=== PATIENT | male | born 1995 | race Caucasian/White ===

== ENCOUNTER 2017-03-30 15:56 | Emergency (ER) | payer OTHER, BC ==
[~2017-03-30] VITALS: Ht 180.3 cm; Wt 141.4 kg
[2017-03-30] MEDS ORDERED: NS 1,000 ML IV ONE (19:00)
[2017-03-30] MEDS ORDERED: MORPHINE 4 MG/ML 1ML SYRINGE IV PRN (19:00)
[2017-03-30] MEDS ORDERED: GASTROGRAFIN SOLUTION 30ML (Q9963) PO ONE (19:00)
[2017-03-30] MEDS ORDERED: ONDANSETRON 4MG/2ML VIAL (J2405) IV ONE (19:00)
[2017-03-30 19:23] LABS: BASO % 0.3 % (0.0-1.0); EOS % 0.3 % (0.0-3.0); IMMATURE GRANULOCYTE % 0.6 % (0-0); LYMPH # 0.8 10^3/uL (1.5-6.5); LYMPH % 6.2 % (24.0-44.0); MEAN CORPUSCULAR HEMOGLOBIN 31.1 pg (27.0-33.0); MEAN CORPUSCULAR HGB CONC 34.4 g/dl (32.0-36.5); MEAN CORPUSCULAR VOLUME 90.3 fl (80.0-96.0); MONO # 0.5 10^3/uL (0.0-0.8); MONO % 4.1 % (0.0-5.0); NEUTROPHILS % 88.5 % (36.0-66.0); PLATELET COUNT, AUTOMATED 211 10^3/uL (150-450); RED CELL DISTRIBUTION WIDTH 11.7 % (11.5-14.5); WHITE BLOOD COUNT 12.5 10^3/uL (4.0-10.0)
[2017-03-30 19:47] LABS: ALBUMIN 4.3 GM/DL (3.2-5.2); ALKALINE PHOSPHATASE 76 U/L (45-117); ALT/SGPT 55 U/L (12-78); ANION GAP 6 MEQ/L (8-16); AST/SGOT 29 U/L (15-37); BILIRUBIN,DIRECT 0.2 MG/DL (0.0-0.2); BILIRUBIN,TOTAL 0.9 MG/DL (0.2-1.0); BLOOD UREA NITROGEN 12 MG/DL (7-18); CALCIUM LEVEL 8.9 MG/DL (8.5-10.1); CARBON DIOXIDE LEVEL 28 MEQ/L (21-32); CHLORIDE LEVEL 102 MEQ/L (98-107); CREATININE FOR GFR 0.93 MG/DL (0.70-1.30); GLOMERULAR FILTRATION RATE > 60.0 (>60); GLUCOSE, FASTING 94 MG/DL (70-105); POTASSIUM SERUM 3.5 MEQ/L (3.5-5.1); SODIUM LEVEL 136 MEQ/L (136-145); TOTAL PROTEIN 8.2 GM/DL (6.4-8.2)
[2017-03-30] MEDS ORDERED: ISOVUE-370 76% 100ML VIAL (Q9967) As Ordered ONE (20:25)
[2017-03-30] MEDS ORDERED: PERC5TAB12 PO (22:29)
[2017-03-30] MEDS ORDERED: BENT10CA PO (22:29)
[2017-03-30] MEDS ORDERED: ZOFR4TAB3 PO (22:29)
[2017-03-30] MEDS ORDERED: DICYCLOMINE 10 MG CAP PO ONE (22:30)
[2017-03-30] MEDS ORDERED: OXYCODONE/APAP 5MG/325MG(BULK FOR ED) 1 TABLET PO ONE (22:30)
[2017-03-30] MEDS ORDERED: ONDANSETRON 4 MG ORAL DISINTEGRATING TAB (S0181) PO ONE (22:30)
[2017-03-30 22:40] VITALS: BP 128/83
--- NOTE | 2017-03-31 15:17 | REP ---
Clinical: Lower abdominal pain with fever and diarrhea. Technique: Axial contrast enhanced images from the lung bases to the pubic symphysis using oral and 100 ml Isovue 370 intravenous contrast material with coronal and sagittal re-formations. Comparison: 05/31/2014. Findings: Lung bases are clear. Visualized heart and pericardium normal. Small hiatal hernia identified at the gastroesophageal junction. Liver, spleen, pancreas, gallbladder, bilateral adrenal glands and kidneys are normal. The enteric system is without obstruction or acute inflammatory process. Mildly prominent mesenteric and right lower quadrant lymph nodes may reflect mesenteric adenitis and should be correlated clinically. There is no evidence for appendicitis. Few scattered sigmoid diverticula noted without acute diverticulitis. Pelvis demonstrates partially collapsed normal bladder and age appropriate prostate/seminal vesicles. No free air. No free fluid. No retroperitoneal adenopathy. Abdominal aorta and vasculature normal. Surrounding musculoskeletal structures are intact. Impression: 1. Few scattered and minimally prominent mesenteric/right lower quadrant lymph nodes may reflect mesenteric adenitis. 2. No further acute abdominopelvic pathology appreciated. Signed by Yrn De La Garza MD 03/31/2017 03:09 P
== END 2017-03-30 22:48 | disposition home or self-care (01) ==
LOC: M ED 15:56
DX: R10.31 Right lower quadrant pain (principal); K21.9 Gastro-esophageal reflux disease without esophagitis
CPT/HCPCS: 74177; 80048; 80076; 81001; 83690; 85025; 99284; J2405; Q9963; Q9967

== ENCOUNTER 2017-10-21 19:40 | Emergency (ER) | payer OTHER, BC ==
[2017-10-21] MEDS: oxyCODONE 5MG TAB PO (22:16)
[2017-10-21] MEDS: AUGMENTIN 875 MG TAB PO (22:16)
== END 2017-10-21 22:20 | disposition home or self-care (01) ==
LOC: M ED 19:40
DX: K04.7 Periapical abscess without sinus (principal); K21.9 Gastro-esophageal reflux disease without esophagitis; Z79.899 Other long term (current) drug therapy
CPT/HCPCS: 99283

== ENCOUNTER 2017-12-17 19:14 | Emergency (ER) | payer OTHER ==
[2017-12-17] MEDS: LIDOCAINE 2% MDV 20 ML VIAL SC (21:45)
[2017-12-17] MEDS: BACTRIM 160MG/800MG DS TAB PO (22:00)
== END 2017-12-17 22:06 | disposition home or self-care (01) ==
LOC: M ED 19:14
DX: A49.02 Methicillin resistant Staphylococcus aureus infection, unspecified site (principal); L02.811 Cutaneous abscess of head [any part, except face]; K21.9 Gastro-esophageal reflux disease without esophagitis; Z86.14 Personal history of Methicillin resistant Staphylococcus aureus infection; Z87.891 Personal history of nicotine dependence
CPT/HCPCS: 99283

== ENCOUNTER 2018-02-23 00:22 | Emergency (ER) | payer OTHER ==
[2018-02-23] MEDS: FAMOTIDINE 20 MG TAB PO (01:15)
[2018-02-23] MEDS: predniSONE 20 MG TAB PO (01:15)
[2018-02-23] MEDS: diphenhydrAMINE 50 MG CAP PO (01:15)
== END 2018-02-23 02:07 | disposition home or self-care (01) ==
LOC: M ED 00:22
DX: L50.0 Allergic urticaria (principal); R51 Headache; Z79.899 Other long term (current) drug therapy
CPT/HCPCS: 99282

== ENCOUNTER 2018-03-11 02:24 | Emergency (ER) | payer OTHER ==
[2018-03-11] MEDS: METHOCARBAMOL 1,000 MG/10 ML VIAL (J2800) IV (04:15)
[2018-03-11] MEDS: ONDANSETRON 4MG/2ML VIAL (J2405) IV (04:15)
[2018-03-11] MEDS: KETOROLAC 30 MG/ML VIAL (J1885) IV (04:16)
[2018-03-11] MEDS: MORPHINE 4 MG/ML 1ML VIAL/SYRINGE (J2270) IV (04:17)
[2018-03-11] MEDS: OXYCODONE/APAP 5MG/325MG(BULK FOR ED) 1 TABLET PO (06:02)
== END 2018-03-11 06:06 | disposition home or self-care (01) ==
LOC: M ED 02:24
DX: M54.5 Low back pain (principal); E66.01 Morbid (severe) obesity due to excess calories
CPT/HCPCS: J2270

== ENCOUNTER 2018-06-03 22:33 | Emergency (ER) | payer OTHER ==
[~2018-06-03] VITALS: Ht 185.4 cm; Wt 136.4 kg
[~2018-06-03 22:33] MED LIST: AUGM875T28 PO; BACT800T5 PO; BENA2CRE2 TOP; BENT10CA PO; IBUP-1022 PO; LEVO50TA5; NAPR-49 PO; OMEP40CA2 PO; PERC5TAB12 PO; PRED20TA PO; ROBA500T PO; ZOFR4TAB14 PO
[2018-06-03] MEDS ORDERED: BENA25CA4 PO (23:11)
[2018-06-03] MEDS ORDERED: PRED20TA PO (23:11)
[2018-06-03] MEDS ORDERED: predniSONE 20 MG TAB PO ONE (23:15)
[2018-06-03] MEDS ORDERED: diphenhydrAMINE 50 MG CAP PO ONE (23:15)
[2018-06-03 23:43] VITALS: BP 129/75
== END 2018-06-03 23:58 | disposition home or self-care (01) ==
LOC: M ED 22:33
DX: R21 Rash and other nonspecific skin eruption (principal); T78.40XA Allergy, unspecified, initial encounter; X58.XXXA Exposure to other specified factors, initial encounter; Y92.89 Other specified places as the place of occurrence of the external cause; K21.9 Gastro-esophageal reflux disease without esophagitis; E03.9 Hypothyroidism, unspecified; Z79.899 Other long term (current) drug therapy

== ENCOUNTER 2019-01-19 21:43 | Emergency (ER) | payer OTHER ==
[~2019-01-19] VITALS: Ht 182.9 cm; Wt 136.4 kg
[~2019-01-19 21:43] MED LIST changes: +BENA25CA4 PO; -NAPR-49 PO; +NAPR-837 PO
[2019-01-19 22:21] LABS: HEMATOCRIT 51.1 % (42.0-52.0); HEMOGLOBIN 17.4 g/dl (13.5-17.5); MEAN CORPUSCULAR HEMOGLOBIN 31.2 pg (27.0-33.0); MEAN CORPUSCULAR HGB CONC 34.1 g/dl (32.0-36.5); MEAN CORPUSCULAR VOLUME 91.7 fl (80.0-96.0); PLATELET COUNT, AUTOMATED 218 10^3/uL (150-450); RED BLOOD COUNT 5.57 10^6/uL (4.30-6.10); WHITE BLOOD COUNT 11.8 10^3/uL (4.0-10.0)
[2019-01-19 22:50] LABS: ALBUMIN 4.1 GM/DL (3.2-5.2); ALT/SGPT 65 U/L (12-78); BILIRUBIN,TOTAL 0.3 MG/DL (0.2-1.0); BLOOD UREA NITROGEN 13 MG/DL (7-18); CALCIUM LEVEL 9.6 MG/DL (8.5-10.1); CARBON DIOXIDE LEVEL 29 MEQ/L (21-32); CHLORIDE LEVEL 105 MEQ/L (98-107); CREATININE FOR GFR 0.91 MG/DL (0.70-1.30); GLOMERULAR FILTRATION RATE > 60.0 (>60); GLUCOSE, FASTING 108 MG/DL (70-100); POTASSIUM SERUM 4.3 MEQ/L (3.5-5.1); SODIUM LEVEL 140 MEQ/L (136-145); TOTAL PROTEIN 7.8 GM/DL (6.4-8.2)
[2019-01-20 00:02] LABS: APPEARANCE, URINE HAZY (CLEAR); BACTERIA, URINE AUTO NEGATIVE (NEGATIVE); BILIRUBIN, URINE AUTO NEGATIVE (NEGATIVE); BLOOD, URINE BLOOD NEGATIVE (NEGATIVE); COLOR, URINE YELLOW (YELLOW); GLUCOSE, URINE (UA) AUTO NEGATIVE (NEGATIVE); KETONE, URINE AUTO TRACE mg/dL (NEGATIVE); LEUKOCYTE ESTERASE, URINE AUTO TRACE (NEGATIVE); MUCUS, URINE SMALL (NEGATIVE); NITRITE, URINE AUTO NEGATIVE (NEGATIVE); PROTEIN, URINE AUTO NEGATIVE (NEGATIVE); RBC, URINE AUTO 4 /HPF (0-3); SPECIFIC GRAVITY URINE AUTO 1.033 (1.002-1.035); SQUAMOUS EPITHELIAL CELL UR AU 0 /HPF (0-6); UROBILINOGEN, URINE AUTO 0.2 mg/dL (0.0-2.0); WBC, URINE AUTO 21 /HPF (0-3)
[2019-01-20] MEDS ORDERED: diphenhydrAMINE INJ 50MG/ML VIAL (J1200) IV STA (01:12)
[2019-01-20] MEDS ORDERED: NS 1,000 ML IV ONE (01:15)
[2019-01-20] MEDS ORDERED: MORPHINE 4 MG/ML 1ML VIAL/SYRINGE (J2270) IV ONE (01:15)
[2019-01-20] MEDS ORDERED: ISOVUE-370 76% 100ML VIAL (Q9967) As Ordered ONE (01:34)
[2019-01-20 03:38] VITALS: BP 115/58
--- NOTE | 2019-01-20 04:35 | REPVR ---
EXAM: CT Abdomen and Pelvis With Contrast EXAM DATE/TIME: 01/20/2019 2:06 AM CLINICAL HISTORY: 23 years old, male; Abdominal pain; Localized; Right lower quadrant (rlq); Additional info: Rlq pain TECHNIQUE: Imaging protocol: Axial computed tomography images of the abdomen and pelvis with intravenous contrast. Coronal and sagittal reformatted images were created and reviewed. Radiation optimization: All CT scans at this facility use at least one of these dose optimization techniques: automated exposure control; mA and/or kV adjustment per patient size (includes targeted exams where dose is matched to clinical indication); or iterative reconstruction. Contrast material: ISOVUE 370;Contrast volume: 100 ml;Contrast route: IV; COMPARISON: CT ABD/PEL W/IV ORAL CONTRAS 03/30/2017 9:02 PM FINDINGS: Lungs: The visualized portions of the lung bases are normal. Liver: There are no focal liver lesions present. Gallbladder and bile ducts: The gallbladder is normal with no stones or biliary ductal dilation. Pancreas: There is diffuse, benign fatty infiltration of the pancreas. Spleen: The spleen is normal. Adrenals: The adrenal glands are normal. Kidneys and ureters: There is an 11 mm cyst in the left kidney lower pole, increased in size from 9 mm on the prior exam. No followup needed. The kidneys are otherwise unremarkable. There are no ureteral stones or hydronephrosis. Stomach and bowel: There is no dilation or thickening of the colon. The small bowel appears unremarkable. Appendix: A normal appendix is identified. Intraperitoneal space: There is no evidence of free intraperitoneal or pelvic fluid. There is no free intraperitoneal air. Vasculature: No aortic aneurysm. Lymph nodes: There are multiple small retroperitoneal, mesenteric, and inguinal lymph nodes, but they are not pathologically enlarged by CT criteria and are similar to the prior exam. Bladder: The bladder is unremarkable. No stones identified. Reproductive: The prostate gland and seminal vesicles are normal. Bones/joints: No suspicious osseous lesions. No acute fractures or dislocations. Soft tissues: Unremarkable. IMPRESSION: No acute abnormality identified. Normal appearance of the appendix. Electronically signed by: Sweta Colon On 01/20/2019 04:34:33 AM
[2019-01-20] MEDS ORDERED: BACT800T5 PO (04:47)
[2019-01-21] MEDS ORDERED: ONDA4TAB6 PO (19:36)
[2019-01-21] MEDS ORDERED: NAPR-837 PO (19:36)
[2019-01-21] MEDS ORDERED: MACR100C43 PO (19:36)
== END 2019-01-20 05:00 | disposition home or self-care (01) ==
LOC: M ED 21:43
DX: N30.90 Cystitis, unspecified without hematuria (principal); K21.9 Gastro-esophageal reflux disease without esophagitis; Z79.52 Long term (current) use of systemic steroids; Z79.891 Long term (current) use of opiate analgesic; Z79.899 Other long term (current) drug therapy
CPT/HCPCS: 74177; 80053; 81001; 85027; 96374; 96375; 99284; J1200; J2270; Q9967

== ENCOUNTER 2019-01-21 14:44 | Emergency (ER) | payer OTHER ==
[~2019-01-21] VITALS: Ht 182.9 cm; Wt 146.5 kg
[2019-01-21 15:20] LABS: APPEARANCE, URINE CLEAR (CLEAR); BACTERIA, URINE AUTO NEGATIVE (NEGATIVE); BILIRUBIN, URINE AUTO NEGATIVE (NEGATIVE); BLOOD, URINE BLOOD NEGATIVE (NEGATIVE); COLOR, URINE AMBER (YELLOW); GLUCOSE, URINE (UA) AUTO NEGATIVE (NEGATIVE); KETONE, URINE AUTO NEGATIVE (NEGATIVE); LEUKOCYTE ESTERASE, URINE AUTO NEGATIVE (NEGATIVE); NITRITE, URINE AUTO POSITIVE (NEGATIVE); PROTEIN, URINE AUTO NEGATIVE (NEGATIVE); RBC, URINE AUTO 1 /HPF (0-3); SPECIFIC GRAVITY URINE AUTO 1.004 (1.002-1.035); SQUAMOUS EPITHELIAL CELL UR AU 0 /HPF (0-6); WBC, URINE AUTO 2 /HPF (0-3)
[2019-01-21] MEDS ORDERED: NS 1,000 ML IV ONE (17:15)
[2019-01-21] MEDS ORDERED: ACETAMINOPHEN 500 MG TAB PO ONE (17:15)
[2019-01-21] MEDS ORDERED: KETOROLAC 30 MG/ML VIAL (J1885) IV ONE (17:15)
[2019-01-21 18:11] LABS: BASO # 0.1 10^3/uL (0.0-0.2); BASO % 0.7 % (0.0-1.0); EOS # 0.2 10^3/uL (0.0-0.50); EOS % 2.1 % (0.0-3.0); HEMATOCRIT 51.4 % (42.0-52.0); HEMOGLOBIN 17.3 g/dl (13.5-17.5); LYMPH # 1.9 10^3/uL (1.5-6.5); LYMPH % 18.7 % (24.0-44.0); MEAN CORPUSCULAR HEMOGLOBIN 31.1 pg (27.0-33.0); MEAN CORPUSCULAR HGB CONC 33.7 g/dl (32.0-36.5); MEAN CORPUSCULAR VOLUME 92.4 fl (80.0-96.0); MONO # 0.8 10^3/uL (0.0-0.8); NEUTROPHILS # 7.1 10^3/uL (1.8-7.7); NEUTROPHILS % 69.9 % (36.0-66.0); PLATELET COUNT, AUTOMATED 221 10^3/uL (150-450); RED BLOOD COUNT 5.56 10^6/uL (4.30-6.10); WHITE BLOOD COUNT 10.2 10^3/uL (4.0-10.0)
--- NOTE | 2019-01-21 18:16 | REPVR ---
EXAM: US Abdomen Limited, Right Upper Quadrant EXAM DATE/TIME: 01/21/2019 5:52 PM CLINICAL HISTORY: 23 years old, male; Abdominal pain; Flank; Right; Additional info: Right flank pain, fever, elevated lft's, kidney/liver please TECHNIQUE: Imaging protocol: Real-time ultrasound of the abdomen with image documentation. Examination was focused on the right upper quadrant. COMPARISON: CT ABD/PEL W/IV CONTRAST ONLY 01/20/2019 2:05 AM FINDINGS: Liver: Hepatomegaly. Liver appears diffusely echogenic, suggestive of hepatic steatosis. Gallbladder: No gallstones. No gallbladder wall thickening. No abnormal gallbladder distention. Common bile duct: Normal. No stones. No dilation. Pancreas: Pancreas was obscured by overlying bowel gas. Right kidney: Normal. No mass. No hydronephrosis. IMPRESSION: Diffuse hepatic steatosis and hepatomegaly. Electronically signed by: Oliva Odom On 01/21/2019 18:15:46 PM
[2019-01-21 18:42] LABS: ERYTHROCYTE SEDIMENTATION RATE 1 mm/hr (0-15)
[2019-01-21 18:53] LABS: ALBUMIN 4.3 GM/DL (3.2-5.2); ALT/SGPT 57 U/L (12-78); BILIRUBIN,DIRECT 0.2 MG/DL (0.0-0.2); BILIRUBIN,TOTAL 0.6 MG/DL (0.2-1.0); BLOOD UREA NITROGEN 7 MG/DL (7-18); C REACTIVE PROTEIN QUANTITATIV 1.13 MG/DL (0.00-0.30); CALCIUM LEVEL 9.6 MG/DL (8.5-10.1); CARBON DIOXIDE LEVEL 31 MEQ/L (21-32); CHLORIDE LEVEL 103 MEQ/L (98-107); CREATININE FOR GFR 1.02 MG/DL (0.70-1.30); GLOMERULAR FILTRATION RATE > 60.0 (>60); GLUCOSE, FASTING 89 MG/DL (70-100); POTASSIUM SERUM 4.2 MEQ/L (3.5-5.1); SODIUM LEVEL 139 MEQ/L (136-145)
[2019-01-21 19:36] VITALS: BP 139/91
[2019-01-21] MEDS ORDERED: MACR100C43 PO (19:36)
[2019-01-21] MEDS ORDERED: NAPR-837 PO (19:36)
[2019-01-21] MEDS ORDERED: ONDA4TAB6 PO (19:36)
[2019-01-23 11:18] LABS: HEPATITIS B SURFACE ANTIGEN NEGATIVE (NEGATIVE)
[2019-01-23 11:46] LABS: HEPATITIS B CORE ANTIBODY IGM NEGATIVE (NEGATIVE); HEPATITIS C VIRUS ABY INDEX 0.1 INDEX (<0.8)
[2019-01-23 11:48] LABS: HEPATITIS A ANTIBODY IGM NEGATIVE (NEGATIVE)
--- NOTE | 2019-01-25 20:20 | ED PDOC ---
Post-Departure Follow-Up dr parra faxed formal report of abdthomas hayes for fu Ann Marie Estes MD Jan 25, 2019 20:20
== END 2019-01-21 20:08 | disposition home or self-care (01) ==
LOC: M ED 14:44
DX: R50.9 Fever, unspecified (principal); N39.0 Urinary tract infection, site not specified; R10.9 Unspecified abdominal pain; E03.9 Hypothyroidism, unspecified; K21.9 Gastro-esophageal reflux disease without esophagitis; E66.01 Morbid (severe) obesity due to excess calories; K76.0 Fatty (change of) liver, not elsewhere classified; R16.0 Hepatomegaly, not elsewhere classified; Z79.899 Other long term (current) drug therapy
CPT/HCPCS: 76705; 80048; 80076; 81001; 85025; 85652; 86140; 86705; 86709; 86803; 87340; 96374; 99284; J1885

== ENCOUNTER → 2019-02-06 | Outpatient (REF) | payer OTHER ==
[~2019-02-06] MED LIST changes: +BUPR150T3 PO; +DOXY100C; +MACR100C43 PO; -OMEP40CA2 PO; +OMEP40CA97 PO; +ONDA4TAB6 PO; +PHEN15CA PO
[2019-02-06 13:28] LABS: APPEARANCE, URINE CLEAR (CLEAR); BACTERIA, URINE AUTO NEGATIVE (NEGATIVE); BILIRUBIN, URINE AUTO NEGATIVE (NEGATIVE); BLOOD, URINE BLOOD NEGATIVE (NEGATIVE); COLOR, URINE YELLOW (YELLOW); GLUCOSE, URINE (UA) AUTO NEGATIVE (NEGATIVE); KETONE, URINE AUTO NEGATIVE (NEGATIVE); LEUKOCYTE ESTERASE, URINE AUTO 2+ (NEGATIVE); MUCUS, URINE SMALL (NEGATIVE); NITRITE, URINE AUTO NEGATIVE (NEGATIVE); PROTEIN, URINE AUTO NEGATIVE (NEGATIVE); RBC, URINE AUTO 7 /HPF (0-3); SPECIFIC GRAVITY URINE AUTO 1.012 (1.002-1.035); SQUAMOUS EPITHELIAL CELL UR AU 0 /HPF (0-6); UROBILINOGEN, URINE AUTO 0.2 mg/dL (0.0-2.0); WBC, URINE AUTO 41 /HPF (0-3)
== END ==
LOC: M LAB REF 12:36
PROVIDERS: ATTEND Nurse Practitioner Family
DX: N39.0 Urinary tract infection, site not specified (principal)

== ENCOUNTER → 2019-02-17 | Outpatient (REF) | payer OTHER ==
[~2019-02-17] MED LIST changes: -BUPR150T3 PO; -DOXY100C; +OMEP40CA2 PO; -OMEP40CA97 PO; -PHEN15CA PO
[2019-02-17 13:56] LABS: APPEARANCE, URINE CLEAR (CLEAR); BACTERIA, URINE AUTO NEGATIVE (NEGATIVE); BILIRUBIN, URINE AUTO NEGATIVE (NEGATIVE); BLOOD, URINE BLOOD NEGATIVE (NEGATIVE); COLOR, URINE YELLOW (YELLOW); GLUCOSE, URINE (UA) AUTO NEGATIVE (NEGATIVE); KETONE, URINE AUTO NEGATIVE (NEGATIVE); LEUKOCYTE ESTERASE, URINE AUTO 2+ (NEGATIVE); MUCUS, URINE SMALL (NEGATIVE); NITRITE, URINE AUTO NEGATIVE (NEGATIVE); PROTEIN, URINE AUTO NEGATIVE (NEGATIVE); RBC, URINE AUTO 1 /HPF (0-3); SPECIFIC GRAVITY URINE AUTO 1.009 (1.002-1.035); SQUAMOUS EPITHELIAL CELL UR AU 0 /HPF (0-6); UROBILINOGEN, URINE AUTO 0.2 mg/dL (0.0-2.0); WBC, URINE AUTO 35 /HPF (0-3)
== END ==
LOC: M SMT 13:13
PROVIDERS: ATTEND Urology
DX: N39.0 Urinary tract infection, site not specified (principal)

== ENCOUNTER → 2019-04-02 | Outpatient (REF) | payer OTHER ==
[~2019-04-02] MED LIST changes: -OMEP40CA2 PO; +OMEP40CA97 PO
[2019-04-02 13:11] LABS: APPEARANCE, URINE CLEAR (CLEAR); BACTERIA, URINE AUTO 1+ (NEGATIVE); BILIRUBIN, URINE AUTO NEGATIVE (NEGATIVE); BLOOD, URINE BLOOD NEGATIVE (NEGATIVE); COLOR, URINE YELLOW (YELLOW); GLUCOSE, URINE (UA) AUTO NEGATIVE (NEGATIVE); KETONE, URINE AUTO NEGATIVE (NEGATIVE); LEUKOCYTE ESTERASE, URINE AUTO 1+ (NEGATIVE); MUCUS, URINE SMALL (NEGATIVE); NITRITE, URINE AUTO NEGATIVE (NEGATIVE); PROTEIN, URINE AUTO NEGATIVE (NEGATIVE); RBC, URINE AUTO 1 /HPF (0-3); SPECIFIC GRAVITY URINE AUTO 1.014 (1.002-1.035); SQUAMOUS EPITHELIAL CELL UR AU 0 /HPF (0-6); UROBILINOGEN, URINE AUTO 0.2 mg/dL (0.0-2.0); WBC, URINE AUTO 45 /HPF (0-3)
== END ==
LOC: M SMT 12:51
PROVIDERS: ATTEND Urology
DX: R73.01 Impaired fasting glucose (principal)

== ENCOUNTER 2019-05-09 01:43 | Emergency (ER) | payer OTHER ==
[~2019-05-09] VITALS: Ht 182.9 cm; Wt 131.4 kg
[2019-05-09 01:44] VITALS: BP 140/94
[2019-05-09] MEDS ORDERED: DOXY100C (01:57)
[2019-05-09] MEDS ORDERED: BUPR150T3 PO (01:57)
[2019-05-09] MEDS ORDERED: PHEN15CA PO (01:57)
== END 2019-05-09 05:23 | disposition left against medical advice (07) ==
LOC: M ED 01:43
DX: Z53.21 Procedure and treatment not carried out due to patient leaving prior to being seen by health care provider (principal)

== ENCOUNTER 2019-06-03 21:05 | Emergency (ER) | payer OTHER ==
[~2019-06-03] VITALS: Ht 185.4 cm; Wt 129.6 kg
[~2019-06-03 21:05] MED LIST changes: +BUPR150T3 PO; +DOXY100C; +PHEN15CA PO
[2019-06-03 21:06] VITALS: BP 136/93
== END 2019-06-03 23:55 | disposition left against medical advice (07) ==
LOC: M ED 21:05
DX: Z53.21 Procedure and treatment not carried out due to patient leaving prior to being seen by health care provider (principal)

== ENCOUNTER → 2020-01-14 | Outpatient (REF) | payer OTHER ==
[~2020-01-14] MED LIST changes: +POLYSOL OP
[2020-03-08 12:55] LABS: CHLAMYDIA DNA AMPLIFICATION POSITIVE (NEGATIVE); GC DNA AMPLIFICATION NEGATIVE (NEGATIVE)
== END ==
LOC: M LABWUC 15:46
PROVIDERS: ATTEND Physician Assistant
DX: R30.0 Dysuria (principal)

== ENCOUNTER 2020-01-23 17:31 | Emergency (ER) | payer OTHER ==
[~2020-01-23 17:31] MED LIST changes: -POLYSOL OP
[2020-01-23] MEDS ORDERED: KETOROLAC 30 MG/ML 1ML VIAL As Ordered ONE (19:55)
[2020-01-23] MEDS ORDERED: ONDANSETRON 4MG/2ML VIAL As Ordered ONE (19:55)
[2020-01-23] MEDS ORDERED: ISOVUE-370 76% 100ML VIAL As Ordered ONE (21:15)
[2020-01-23] MEDS ORDERED: cefTRIAXone SOD 250MG VIAL (J0696 PER 250MG) ONE (21:40)
[2020-01-23] MEDS ORDERED: LIDOCAINE 1% SDV 5ML VIAL ONE (21:40)
[2020-01-23] MEDS ORDERED: cefTRIAXone SOD 250MG VIAL (J0696 PER 250MG) As Ordered ONE (21:40)
[2020-01-23] MEDS ORDERED: AZITHROMYCIN 250MG TABLET ONE (21:40)
[2020-01-23] MEDS ORDERED: AZITHROMYCIN 250MG TABLET As Ordered ONE (21:41)
[2020-01-23] MEDS ORDERED: LIDOCAINE 1% SDV 5ML VIAL As Ordered ONE (21:41)
[2020-01-23] MEDS ORDERED: KETOROLAC 30 MG/ML 1ML VIAL ONE (21:50)
[2020-01-23] MEDS ORDERED: ONDANSETRON 4MG/2ML VIAL ONE (21:50)
[2020-02-23 14:54] LABS: CHLAMYDIA DNA AMPLIFICATION POSITIVE (NEGATIVE); GC DNA AMPLIFICATION NEGATIVE (NEGATIVE)
[2020-03-07 12:36] LABS: APPEARANCE, URINE MANUAL CLEAR (CLEAR); BILIRUBIN, URINE MANUAL NEGATIVE (NEGATIVE); BLOOD URINE MANUAL NEGATIVE (NEGATIVE); COLOR, URINE MANUAL YELLOW (YELLOW); GLUCOSE, URINE (UA) MANUAL NEGATIVE (NEGATIVE); KETONE, URINE MANUAL NEGATIVE (NEGATIVE); LEUKOCYTE ESTERASE, URINE MAN POSITIVE (NEGATIVE); NITRITE, URINE MANUAL POSITIVE (NEGATIVE); PROTEIN, URINE MANUAL NEGATIVE (NEGATIVE); RBC, URINE 0-1 /hpf (0-3); SQUAMOUS EPITHELIAL CELL URINE 0 /hpf (SMALL AMT); UROBILINOGEN, URINE MANUAL NORMAL (NORMAL); WBC, URINE TNTC /hpf (0-3)
[2020-03-07 12:37] LABS: BACTERIA, URINE SMALL AMOUNT; HYALINE CAST, URINE NONE SEEN /lpf (0-1); MUCUS, URINE SMALL AMOUNT (NEGATIVE); TRANSITIONAL EPI CELLS, URINE SMALL AMOUNT /hpf
[2020-03-07 20:42] LABS: BASO # 0.1 10^3/uL (0.0-0.2); BASO % 0.8 % (0.0-1.0); EOS # 0.2 10^3/uL (0.0-0.5); EOS % 1.4 % (0.0-3.0); HEMATOCRIT 48.8 % (42.0-52.0); HEMOGLOBIN 16.9 g/dl (13.5-17.5); LYMPH # 3.3 10^3/uL (1.5-5.0); MEAN CORPUSCULAR HEMOGLOBIN 31.6 pg (27.0-33.0); MEAN CORPUSCULAR HGB CONC 34.6 g/dl (32.0-36.5); MEAN CORPUSCULAR VOLUME 91.2 fl (80.0-96.0); MONO # 0.9 10^3/uL (0.0-0.8); MONO % 7.2 % (0.0-5.0); NEUTROPHILS # 7.6 10^3/uL (1.5-8.5); NEUTROPHILS % 62.9 % (36.0-66.0); PLATELET COUNT, AUTOMATED 222 10^3/uL (150-450); RED BLOOD COUNT 5.35 10^6/uL (4.30-6.10); WHITE BLOOD COUNT 12.1 10^3/uL (4.0-10.0)
== END 2020-01-23 22:45 | disposition home or self-care (01) ==
LOC: M ED 17:31
DX: N39.0 Urinary tract infection, site not specified (principal); A74.9 Chlamydial infection, unspecified; E03.9 Hypothyroidism, unspecified; K21.9 Gastro-esophageal reflux disease without esophagitis; Z88.2 Allergy status to sulfonamides
CPT/HCPCS: 74177; 80053; 81000; 83690; 85025; 87086; 87661; 99283; J0696; J1885; J2405; Q9967

== ENCOUNTER 2020-03-08 20:54 | Emergency (ER) | payer OTHER ==
[~2020-03-08] VITALS: Ht 185.4 cm; Wt 132.3 kg
[2020-03-08 20:54] VITALS: BP 147/92
[2020-03-08] MEDS: FLUORESCEIN OPHTH 1 MG STRIP OD ONE ×2 (22:00→22:03)
[2020-03-08] MEDS ORDERED: TETRACAINE 0.5% OPHTH SOLN 4ML OD ONE (22:00)
[2020-03-08] MEDS ORDERED: POLYSOL OP (22:24)
[2020-03-08] MEDS ORDERED: POLYTRIM OPTH DROPS 10ML XX ONE (22:30)
== END 2020-03-08 22:41 | disposition home or self-care (01) ==
LOC: M ED 20:54
DX: H10.89 Other conjunctivitis (principal); Z79.899 Other long term (current) drug therapy

== ENCOUNTER 2020-10-31 23:48 | Emergency (ER) | payer OTHER ==
[~2020-10-31] VITALS: Ht 182.9 cm; Wt 143.5 kg
[~2020-10-31 23:48] MED LIST changes: +BUPR150T12 PO; -BUPR150T3 PO; +POLYSOL OP
[2020-11-01 00:59] LABS: BASO # 0.1 10^3/uL (0.0-0.2); BASO % 0.8 % (0.0-1.0); EOS # 0.3 10^3/uL (0.0-0.5); EOS % 2.3 % (0.0-3.0); HEMOGLOBIN 16.5 g/dl (13.5-17.5); LYMPH # 3.5 10^3/uL (1.5-5.0); LYMPH % 28.3 % (24.0-44.0); MEAN CORPUSCULAR HEMOGLOBIN 31.3 pg (27.0-33.0); MEAN CORPUSCULAR HGB CONC 34.4 g/dl (32.0-36.5); MEAN CORPUSCULAR VOLUME 91.1 fl (80.0-96.0); MONO # 1.1 10^3/uL (0.0-0.8); MONO % 8.9 % (2.0-8.0); NEUTROPHILS # 7.3 10^3/uL (1.5-8.5); NEUTROPHILS % 58.9 % (36.0-66.0); PLATELET COUNT, AUTOMATED 240 10^3/uL (150-450); RED BLOOD COUNT 5.27 10^6/uL (4.30-6.10); WHITE BLOOD COUNT 12.4 10^3/uL (4.0-10.0)
[2020-11-01] MEDS ORDERED: cefTRIAXone SOD 2 GM in D5W MINI-BAG PLUS 50 ML IV ONE (01:15)
[2020-11-01] MEDS ORDERED: LIDOCAINE 1% SDV 5ML VIAL DILUENT ONE (01:15)
[2020-11-01] MEDS ORDERED: cefTRIAXone SOD 2 GM in D5W MINI-BAG PLUS 50 ML IM ONE (01:15)
[2020-11-01] MEDS ORDERED: NS 1,000 ML IV ONE (01:15)
[2020-11-01 01:42] LABS: CHLAMYDIA DNA AMPLIFICATION POSITIVE (NEGATIVE); GC DNA AMPLIFICATION POSITIVE (NEGATIVE)
[2020-11-01 01:48] VITALS: BP 140/93
[2020-11-01] MEDS ORDERED: DOXY-350 PO (01:51)
--- NOTE | 2020-11-01 02:24 | REPVR ---
PROCEDURE INFORMATION: Exam: CT Abdomen And Pelvis Without Contrast Exam date and time: 11/01/2020 1:08 AM Age: 25 years old Clinical indication: Abdominal pain; Flank; Right; Additional info: R flank pain, hematuria, leukocytosis TECHNIQUE: Imaging protocol: Computed tomography of the abdomen and pelvis without contrast. Radiation optimization: All CT scans at this facility use at least one of these dose optimization techniques: automated exposure control; mA and/or kV adjustment per patient size (includes targeted exams where dose is matched to clinical indication); or iterative reconstruction. COMPARISON: CT ABD/PEL W/IV CONTRAST ONLY 01/20/2019 2:05 AM FINDINGS: Lungs: No suspicious mass or airspace process in the visualized lung bases. Liver: Noncontrast liver shows no obvious lesion. Gallbladder and bile ducts: Gallbladder is present and shows no evidence of gallstone. Pancreas: Noncontrast pancreas shows no obvious mass or adjacent fluid. Spleen: Noncontrast spleen shows no obvious focal deformity. Adrenal glands: Adrenal glands are normal in appearance. Kidneys and ureters: Kidneys show no stone or hydronephrosis. Stomach and bowel: No evidence of small bowel obstruction. No evidence of acute diverticulitis. Appendix: Normal caliber appendix is identified, with no adjacent inflammation. Intraperitoneal space: No pneumoperitoneum. Vasculature: No aortic aneurysm. Lymph nodes: No enlarged lymph nodes. Small, nonspecific mesenteric lymph nodes are present. Urinary bladder: Urinary bladder appears normal. Bones/joints: Bony structures show no acute fracture or destructive process. Soft tissues: No concerning focal abnormality of the extra-abdominal and pelvic soft tissues. Other findings: Limited evaluation without enteric or IV contrast. IMPRESSION: No evidence of renal stone or obstructive uropathy and no evidence of acute appendicitis. Electronically signed by: Estevan Thomas On 11/01/2020 02:24:17 AM
== END 2020-11-01 02:45 | disposition home or self-care (01) ==
LOC: M ED 23:48
DX: N30.90 Cystitis, unspecified without hematuria (principal); A74.9 Chlamydial infection, unspecified; A54.9 Gonococcal infection, unspecified; E03.9 Hypothyroidism, unspecified; K21.9 Gastro-esophageal reflux disease without esophagitis; Z79.899 Other long term (current) drug therapy; Z79.890 Hormone replacement therapy; Z87.448 Personal history of other diseases of urinary system; Z88.2 Allergy status to sulfonamides
CPT/HCPCS: 74176; 80047; 81001; 85025; 87086; 87661; 96365; 99284; J0696

== ENCOUNTER 2020-11-22 21:36 | Emergency (ER) | payer OTHER ==
[~2020-11-22] VITALS: Ht 185.4 cm; Wt 146.0 kg
[~2020-11-22 21:36] MED LIST changes: +DOXY-350 PO
[2020-11-22 21:38] VITALS: BP 152/89
== END 2020-11-22 23:17 | disposition left against medical advice (07) ==
LOC: M ED 21:36
DX: Z53.21 Procedure and treatment not carried out due to patient leaving prior to being seen by health care provider (principal)

== ENCOUNTER → 2021-07-24 | Outpatient (REF) | payer OTHER ==
[~2021-07-24] MED LIST changes: -DOXY100C; +DOXY100C3; +OMEP40CA4 PO; -OMEP40CA97 PO; -PHEN15CA PO; +PHEN15CA6 PO
[2021-07-24 16:46] LABS: APPEARANCE, URINE CLEAR (CLEAR); BACTERIA, URINE AUTO 1+ (NEGATIVE); BILIRUBIN, URINE AUTO NEGATIVE (NEGATIVE); BLOOD, URINE BLOOD 1+ (NEGATIVE); COLOR, URINE YELLOW (YELLOW); GLUCOSE, URINE (UA) AUTO NEGATIVE (NEGATIVE); KETONE, URINE AUTO NEGATIVE (NEGATIVE); LEUKOCYTE ESTERASE, URINE AUTO 3+ (NEGATIVE); MUCUS, URINE SMALL (NEGATIVE); NITRITE, URINE AUTO NEGATIVE (NEGATIVE); PROTEIN, URINE AUTO NEGATIVE (NEGATIVE); RBC, URINE AUTO 8 /HPF (0-3); SPECIFIC GRAVITY URINE AUTO 1.016 (1.002-1.035); SQUAMOUS EPITHELIAL CELL UR AU 0 /HPF (0-6); UROBILINOGEN, URINE AUTO 0.2 mg/dL (0.0-2.0); WBC, URINE AUTO TNTC /HPF (0-3)
[2021-07-24 19:50] LABS: GC DNA AMPLIFICATION POSITIVE (NEGATIVE)
== END ==
LOC: M LAB REF 16:19
PROVIDERS: ATTEND Physician Assistant Medical
DX: N39.0 Urinary tract infection, site not specified (principal)

== ENCOUNTER → 2021-09-20 | Outpatient (REF) | payer OTHER | LOC: M LAB REF 14:27 | PROVIDERS: ATTEND Physician Assistant | DX: R05.9 Cough, unspecified (principal) ==

== ENCOUNTER → 2021-10-25 | Outpatient (REF) | payer OTHER | LOC: M LAB REF 12:22 | PROVIDERS: ATTEND Physician Assistant | DX: K13.70 Unspecified lesions of oral mucosa (principal) ==

== ENCOUNTER 2021-12-21 15:00 | Inpatient (IN) | payer MEDICAID, OTHER ==
[~2021-12-21] VITALS: Ht 185.4 cm; Wt 123.3 kg
[2021-12-21] MEDS ORDERED: diazePAM 10MG/2ML SYRINGE (J3360 PER 5MG) As Ordered ONE (15:29)
[2021-12-21] MEDS ORDERED: diazePAM 10MG/2ML SYRINGE (J3360 PER 5MG) IV ONE (15:30)
[2021-12-21 15:31] LABS: BASO # 0.1 10^3/uL (0.0-0.2); BASO % 0.8 % (0.0-1.0); EOS # 0.1 10^3/uL (0.0-0.5); EOS % 0.9 % (0.0-3.0); HEMATOCRIT 49.4 % (42.0-52.0); HEMOGLOBIN 17.3 g/dl (13.5-17.5); LYMPH # 1.5 10^3/uL (1.5-5.0); LYMPH % 11.8 % (24.0-44.0); MEAN CORPUSCULAR HEMOGLOBIN 31.3 pg (27.0-33.0); MEAN CORPUSCULAR VOLUME 89.3 fl (80.0-96.0); MONO # 0.9 10^3/uL (0.0-0.8); MONO % 7.1 % (2.0-8.0); NEUTROPHILS # 10.1 10^3/uL (1.5-8.5); NEUTROPHILS % 78.9 % (36.0-66.0); PLATELET COUNT, AUTOMATED 267 10^3/uL (150-450); RED BLOOD COUNT 5.53 10^6/uL (4.30-6.10); WHITE BLOOD COUNT 12.7 10^3/uL (4.0-10.0)
[2021-12-21 16:15] LABS: ACETAMINOPHEN LEVEL < 2.0 UG/ML (10.0-30.0); ALT/SGPT 48 U/L (12-78); BILIRUBIN,DIRECT 0.2 MG/DL (0.0-0.2); BILIRUBIN,TOTAL 0.8 MG/DL (0.2-1.0); BLOOD UREA NITROGEN 8 MG/DL (7-18); CALCIUM LEVEL 8.9 MG/DL (8.5-10.1); CARBON DIOXIDE LEVEL 27 MEQ/L (21-32); CHLORIDE LEVEL 107 MEQ/L (98-107); CREATININE FOR GFR 1.07 MG/DL (0.70-1.30); ETHYL ALCOHOL (ETHANOL) 0.003 % (0.000-0.010); GLOMERULAR FILTRATION RATE > 60.0 (>60); GLUCOSE, FASTING 115 MG/DL (70-100); POTASSIUM SERUM 3.5 MEQ/L (3.5-5.1); SALICYLATE LEVEL < 1.7 MG/DL (5.0-30.0); SODIUM LEVEL 140 MEQ/L (136-145); TOTAL PROTEIN 7.4 GM/DL (6.4-8.2)
[2021-12-21 16:38] LABS: RSV AMPLIFICATION NEGATIVE (NEGATIVE)
[2021-12-21] MEDS ORDERED: LABETALOL 100MG/20ML VIAL IV STA (18:15)
[2021-12-21 18:37] LABS: AMPHETAMINES LEVEL URINE POSITIVE (NEGATIVE); BARBITURATES URINE NEGATIVE (NEGATIVE); BENZODIAZEPINES URINE POSITIVE (NEGATIVE); CANNABINOIDS URINE NEGATIVE (NEGATIVE); COCAINE METABOLITE URINE NEGATIVE (NEGATIVE); METHADONE URINE NEGATIVE (NEGATIVE); OPIATES URINE NEGATIVE (NEGATIVE); PHENCYCLIDINE URINE NEGATIVE (NEGATIVE)
[2021-12-21] MEDS ORDERED: METOPROLOL TART 50 MG TAB PO ONE (18:40)
[2021-12-21] MEDS ORDERED: OLANZapine ORAL DISINTEGRATING TAB 5MG PO PRN (22:35)
[2021-12-21] MEDS ORDERED: NICOTINE 21MG/24HR 1 EA TRANSDERMAL TD PRN (22:35)
[2021-12-21] MEDS ORDERED: OMEP1CAP73 PO (22:59)
[2021-12-21] MEDS ORDERED: HOME MED LIST COMPLETE! XX SCH (23:00)
[2021-12-22] VITALS (8 sets, daily range): BP systolic 114–154; BP diastolic 59–174
[2021-12-22] MEDS: ACETAMINOPHEN TAB 650MG DOSE (2X325MG) PO PRN (00:41)
[2021-12-22] MEDS: THIAMINE 100 MG TAB PO SCH ×3 (00:41→21:08)
[2021-12-22] MEDS: traZODone 50 MG TAB PO PRN ×2 (00:42→21:08)
[2021-12-22] MEDS: MAALOX 30 ML SUSP *UDC PO PRN (00:53)
[2021-12-22] MEDS: FOLIC ACID 1 MG TAB PO SCH (09:19)
[2021-12-22] MEDS: MULTIVITAMINS/MINERALS THERAP 1 TAB PO SCH (09:19)
[2021-12-22] MEDS: LORazepam 2 MG TAB PO PRN ×2 (09:19→22:15)
[2021-12-22] MEDS ORDERED: MIRALAX *UNIT DOSE* 17GM PACKET PO PRN (12:35)
[2021-12-22] MEDS: VENLAFAXINE **XR** 37.5 MG CAPSULE PO SCH (13:01)
[2021-12-22] MEDS: MOM 30ML SUSPENSION UDC PO PRN (15:24)
[2021-12-22] MEDS: cloNIDine 0.1MG TABLET PO PRN (15:24)
[2021-12-23] VITALS (8 sets, daily range): BP systolic 107–149; BP diastolic 52–92
[2021-12-23] MEDS: VENLAFAXINE **XR** 37.5 MG CAPSULE PO SCH (09:03)
[2021-12-23] MEDS: THIAMINE 100 MG TAB PO SCH ×2 (09:04→20:46)
[2021-12-23] MEDS: MULTIVITAMINS/MINERALS THERAP 1 TAB PO SCH (09:04)
[2021-12-23] MEDS: MOM 30ML SUSPENSION UDC PO PRN (09:04)
[2021-12-23] MEDS: FOLIC ACID 1 MG TAB PO SCH (09:04)
[2021-12-23] MEDS: cloNIDine 0.1MG TABLET PO PRN (09:04)
[2021-12-23] MEDS: LORazepam 2 MG TAB PO PRN ×2 (13:28→18:39)
[2021-12-23] MEDS: ONDANSETRON 4MG TAB PO PRN (18:38)
[2021-12-23] MEDS: traZODone 50 MG TAB PO PRN (20:46)
[2021-12-24 03:54] VITALS: BP 133/74
[2021-12-24 04:00] VITALS: BP 133/74
[2021-12-24] MEDS: FOLIC ACID 1 MG TAB PO SCH (09:55)
[2021-12-24] MEDS: MULTIVITAMINS/MINERALS THERAP 1 TAB PO SCH (09:55)
[2021-12-24] MEDS: MOM 30ML SUSPENSION UDC PO PRN (09:55)
[2021-12-24] MEDS: VENLAFAXINE **XR** 37.5 MG CAPSULE PO SCH (09:55)
[2021-12-24] MEDS: THIAMINE 100 MG TAB PO SCH (09:55)
[2021-12-24 18:35] VITALS: BP 144/92
[2021-12-24 19:50] VITALS: BP 132/69
[2021-12-25 07:16] VITALS: BP 140/84
[2021-12-25] MEDS: MULTIVITAMINS/MINERALS THERAP 1 TAB PO SCH (07:41)
[2021-12-25] MEDS: FOLIC ACID 1 MG TAB PO SCH (07:41)
[2021-12-25] MEDS: VENLAFAXINE **XR** 75MG CAPSULE PO SCH (07:42)
[2021-12-25 08:00] VITALS: BP 140/84
[2021-12-25 16:00] VITALS: BP 147/76
[2021-12-25 17:53] VITALS: BP 147/76
[2021-12-25] MEDS: LORazepam 2 MG TAB PO PRN ×2 (17:57→22:59)
[2021-12-25 18:24] VITALS: BP 147/76
[2021-12-25 22:55] VITALS: BP 165/83
[2021-12-25] MEDS: traZODone 50 MG TAB PO PRN (23:02)
[2021-12-25] MEDS: ONDANSETRON 4MG TAB PO PRN (23:02)
[2021-12-26 05:57] VITALS: BP 163/96
[2021-12-26 07:00] VITALS: BP 163/96
[2021-12-26] MEDS: FOLIC ACID 1 MG TAB PO SCH (08:07)
[2021-12-26] MEDS: MULTIVITAMINS/MINERALS THERAP 1 TAB PO SCH (08:07)
[2021-12-26] MEDS: VENLAFAXINE **XR** 75MG CAPSULE PO SCH (08:07)
[2021-12-26 14:05] VITALS: BP 120/86
[2021-12-26 18:00] VITALS: BP 138/87
[2021-12-26] MEDS: ACETAMINOPHEN TAB 650MG DOSE (2X325MG) PO PRN (20:20)
[2021-12-26 23:20] VITALS: BP 137/88
[2021-12-27 06:00] VITALS: BP 146/88
[2021-12-27] MEDS: VENLAFAXINE **XR** 75MG CAPSULE PO SCH (08:26)
[2021-12-27] MEDS: MULTIVITAMINS/MINERALS THERAP 1 TAB PO SCH (08:26)
[2021-12-27] MEDS: FOLIC ACID 1 MG TAB PO SCH (08:26)
[2021-12-27] MEDS: traZODone 50 MG TAB PO PRN (20:13)
[2021-12-27] MEDS: MAALOX 30 ML SUSP *UDC PO PRN (22:10)
[2021-12-28 07:04] VITALS: BP 144/100
[2021-12-28] MEDS: MAALOX 30 ML SUSP *UDC PO PRN (09:55)
[2021-12-28] MEDS: VENLAFAXINE **XR** 75MG CAPSULE PO SCH (09:55)
[2021-12-28 18:51] VITALS: BP 131/90
[2021-12-28] MEDS: traZODone 50 MG TAB PO PRN (20:36)
[2021-12-28] MEDS: MOM 30ML SUSPENSION UDC PO PRN (20:36)
[2021-12-29 06:15] VITALS: BP 168/100
[2021-12-29] MEDS: MAALOX 30 ML SUSP *UDC PO PRN (07:21)
[2021-12-29] MEDS ORDERED: VENL75CA47 PO (09:15)
[2021-12-29] MEDS ORDERED: NICO21PAT TD (09:15)
[2021-12-29] MEDS ORDERED: CLONI1TA PO (09:15)
[2021-12-29] MEDS ORDERED: TRAZ-252 PO ×2 (09:15→09:16)
[2021-12-29] MEDS: VENLAFAXINE **XR** 75MG CAPSULE PO SCH (09:18)
== END 2021-12-29 10:31 | DRG 776 ==
LOC: M ED 15:00 → EDBD 15:00 → M ED INP 22:35 → M PSY 12-22 00:20
PROVIDERS: ADMIT Student in an Organized Health Care Education/Training Program; ATTEND Student in an Organized Health Care Education/Training Program
DX: F19.14 Other psychoactive substance abuse with psychoactive substance-induced mood disorder (principal); F19.130 Other psychoactive substance abuse with withdrawal, uncomplicated; F60.89 Other specific personality disorders; Z91.51 Personal history of suicidal behavior; K21.9 Gastro-esophageal reflux disease without esophagitis; E03.9 Hypothyroidism, unspecified; R73.03 Prediabetes; F17.200 Nicotine dependence, unspecified, uncomplicated; E66.9 Obesity, unspecified; K59.00 Constipation, unspecified; R10.9 Unspecified abdominal pain; R45.851 Suicidal ideations; Z20.822 Contact with and (suspected) exposure to COVID-19; Z88.2 Allergy status to sulfonamides; Z90.49 Acquired absence of other specified parts of digestive tract

== ENCOUNTER → 2022-04-17 | Outpatient (REF) ==
[~2022-04-17] MED LIST changes: +CLONI1TA PO; -DOXY-350 PO; +DOXY-444 PO; +NICO21PAT TD; +OMEP1CAP73 PO; +TRAZ-252 PO; +VENL75CA47 PO
[2022-04-17 15:47] LABS: RSV AMPLIFICATION POSITIVE (NEGATIVE)
== END ==
LOC: M EMP 14:12
PROVIDERS: ATTEND Family Medicine
DX: Z11.52 Encounter for screening for COVID-19 (principal)

== ENCOUNTER → 2022-04-24 | Outpatient (REF) | LOC: M EMP 07:33 | PROVIDERS: ATTEND Family Medicine | DX: Z11.52 Encounter for screening for COVID-19 (principal) ==

== ENCOUNTER → 2022-04-24 | Outpatient (REF) | LOC: M EMP 07:42 | PROVIDERS: ATTEND Family Medicine | DX: Z11.52 Encounter for screening for COVID-19 (principal) ==

== ENCOUNTER 2022-04-26 13:42 | Emergency (ER) | payer OTHER ==
[2022-04-26] MEDS ORDERED: PRAZ1CAP (14:39)
[2022-04-26] MEDS ORDERED: NALT50TA4 (14:39)
[2022-04-26] MEDS ORDERED: PROP10TA56 (14:39)
[2022-04-26 15:22] VITALS: BP 120/65
== END 2022-04-26 18:11 | disposition left against medical advice (07) ==
LOC: M ED 13:42
DX: Z53.21 Procedure and treatment not carried out due to patient leaving prior to being seen by health care provider (principal)

== ENCOUNTER 2022-04-26 14:01 | Emergency (ER) | payer OTHER ==
[2022-04-26] MEDS ORDERED: PRAZ1CAP (14:39)
[2022-04-26] MEDS ORDERED: PROP10TA56 (14:39)
[2022-04-26] MEDS ORDERED: NALT50TA4 (14:39)
== END 2022-04-26 14:22 | disposition left against medical advice (07) ==
LOC: M ED 14:01
DX: Z53.21 Procedure and treatment not carried out due to patient leaving prior to being seen by health care provider (principal)

== ENCOUNTER → 2022-04-30 | Outpatient (REF) ==
[~2022-04-30] MED LIST changes: +NALT50TA4; +PRAZ1CAP; +PROP10TA56
== END ==
LOC: M EMP 09:40
PROVIDERS: ATTEND Family Medicine
DX: Z11.52 Encounter for screening for COVID-19 (principal)

== ENCOUNTER 2025-03-30 11:32 | Emergency (ER) | payer OTHER ==
[~2025-03-30] VITALS: Ht 182.9 cm; Wt 109.0 kg
[~2025-03-30 11:32] MED LIST changes: +DOXY-440 PO; -DOXY-444 PO; -IBUP-1022 PO; +IBUP600T42 PO; +ONDA-282 PO; -ONDA4TAB6 PO
[2025-03-30 14:43] VITALS: BP 137/93; TEMP 97.8; O2SAT 98
== END 2025-03-30 15:17 | disposition home or self-care (01) ==
LOC: M ED 11:32
DX: M79.671 Pain in right foot (principal); M79.672 Pain in left foot; E03.9 Hypothyroidism, unspecified; F41.9 Anxiety disorder, unspecified; Z88.2 Allergy status to sulfonamides; Z79.899 Other long term (current) drug therapy